=== PATIENT | male | born 1985 | race Caucasian/White ===

== ENCOUNTER 2016-08-15 18:53 | Emergency (ER) | payer MEDICAID ==
[2016-08-15 19:02] VITALS: TEMP 98.1
--- NOTE | 2016-08-15 20:05 | EDPHY ---
H & P Time Seen by Provider: 08/15/16 19:10 HPI/ROS: CHIEF COMPLAINT: Headache HISTORY OF PRESENT ILLNESS: Patient is a 30-year-old male with a history of Crohn's disease who presents to the emergency department with a headache. He states that he is prone to dehydration with his Crohn's disease. On Tuesday he developed a headache. He describes this as "a normal thing." He took Tylenol his symptoms resolved. His headache returns last evening after eating Cheetos. He states this was a "bad decision." He developed nausea and vomiting. He describes a left frontal headache that does not radiate. He has no photophobia. No preceding aura. No neck stiffness or pain. The patient awoke this morning and his headache had improved but was slightly present. He has had no nausea or vomiting throughout the day. He denies abdominal pain. No fevers or chills. No recent travel. No weakness or numbness. REVIEW OF SYSTEMS: My complete review of systems is negative except as mentioned in the HPI. Past Medical/Surgical History: Includes Crohn's disease, depression, anxiety Past surgical history: Kidney stone procedure, tonsillectomy, oral surgery Social history: Patient does not smoke tobacco. He uses marijuana. Smoking Status: Current some day smoker Physical Exam: Vitals noted GENERAL: Well-appearing, in no acute distress, alert. HEENT: Eyes normal to inspection, normal pharynx, no signs of dehydration. NECK: No thyromegaly, no lymphadenopathy, supple. RESPIRATORY: Clear to auscultation bilaterally, no rales, rhonchi or wheezing. CVS: Regular rate and rhythm, no rubs, murmurs, or gallops. ABDOMEN: Soft, nontender, nondistended, no organomegaly. BACK: Normal to inspection, no CVA tenderness. SKIN: Normal color, no rash, warm, dry. No pallor. EXTREMITIES: No pedal edema, no calf tenderness, no Homans sign or cords, no joint swelling. NEURO/PSYCH: Higher functions: Alert and Oriented x3. Normal speech and cognition. Normal mood and affect. Cranial nerves: Normal as tested. Cerebellar: Normal as tested. Good finger to nose, good [id number], normal gait. Peripheral exam: Normal motor exam. Normal sensation. Normal reflexes. Constitutional: Initial Vital Signs Temperature (C) 36.7 C 08/15/16 18:57 Heart Rate 67 08/15/16 18:57 Respiratory Rate 16 08/15/16 18:57 Blood Pressure 129/83 H 08/15/16 18:57 O2 Sat (%) 96 08/15/16 18:57 O2 Delivery Mode Room Air Allergies/Adverse Reactions: No Known Allergies Allergy (Verified 03/22/16 01:57) Home Medications: Medication Instructions Recorded fluvoxaMINE MALEATE [Luvox] 100 mg PO DAILY 03/23/11 Medical Thc 09/02/12 Fesoterodine Fumarate [TOVIAZ] 09/19/15 Humira 12/18/15 oxyCODONE/APAP 5/325 [Percocet 1 - 2 tab PO Q4PRN PRN #11 tab 08/15/16 5/325 (*)] Medical Decision Making ED Course/Re-evaluation: In the emergency department I discussed possible etiologies with the patient. An IV was placed. Patient was given normal saline 1 L IV for hydration. The patient was given Reglan 10 mg IV for his headache. I rechecked the patient on numerous occasions. He was stable throughout his stay. His symptoms had improved. He had no focal neuro are deficits on repeat exam. Head CT: No acute disease noted. Discussed the results with the patient. I answered all his questions. The patient had a nonfocal neuro exam prior to discharge. The patient will follow up with worsening symptoms. He was given warnings prior to leaving. Differential Diagnosis: My differential includes but is not limited to migraine, subarachnoid hemorrhage , subdural hematoma, epidural hematoma, meningitis, encephalitis, dehydration, electrolyte abnormality, sugar abnormality - Data Points Laboratory Results: Laboratory Results 08/15/16 20:15 08/15/16 08/15/16 20:15 20:15 WBC 6.33 10^3/uL 10^3/uL (3.80-9.50) RBC 4.46 10^6/uL 10^6/uL (4.40-6.38) Hgb 13.4 g/dL L g/dL (13.7-17.5) Hct 38.5 % L % (40.0-51.0) MCV 86.3 fL fL (81.5-99.8) MCH 30.0 pg pg (27.9-34.1) MCHC 34.8 g/dL g/dL (32.4-36.7) RDW 16.2 % H % (11.5-15.2) Plt Count 222 10^3/uL 10^3/uL (150-400) MPV 11.5 fL fL (8.7-11.7) Neut % (Auto) 63.9 % % (39.3-74.2) Lymph % (Auto) 24.3 % % (15.0-45.0) [place] % (Auto) 7.4 % % (4.5-13.0) Eos % (Auto) 2.8 % % (0.6-7.6) Baso % (Auto) 1.1 % % (0.3-1.7) Nucleat RBC Rel Count 0.0 % % (0.0-0.2) Absolute Neuts (auto) 4.04 10^3/uL 10^3/uL (1.70-6.50) Absolute Lymphs (auto) 1.54 10^3/uL 10^3/uL (1.00-3.00) Absolute Monos (auto) 0.47 10^3/uL 10^3/uL (0.30-0.80) Absolute Eos (auto) 0.18 10^3/uL 10^3/uL (0.03-0.40) Absolute Basos (auto) 0.07 10^3/uL 10^3/uL (0.02-0.10) Absolute Nucleated RBC 0.00 10^3/uL 10^3/uL (0-0.01) Immature Gran % 0.5 % % (0.0-1.1) Immature Gran # 0.03 10^3/uL 10^3/uL (0.00-0.10) Sodium Pending Potassium Pending Chloride Pending Carbon Dioxide Pending Anion Gap Pending BUN Pending Creatinine Pending Estimated GFR Pending Glucose Pending Calcium Pending Medications Given: Discontinued Medications Metoclopramide HCl (Reglan Injection) 10 mg IVP EDNOW ONE Stop: 08/15/16 20:07 Last Admin: 08/15/16 20:27 Dose: 10 mg Departure - Departure Disposition: Home, Routine, Self-Care Clinical Impression: Dehydration Headache Qualifiers: Headache type: unspecified Headache chronicity pattern: acute headache Intractability: not intractable Qualified Code(s): R51 - Headache Condition: Good Instructions: Acute Headache (ED) Additional Instructions: Make sure to stay well-hydrated. Return with increasing headache, weakness, numbness, neck pain, fever or any other concerns. Referrals: Kathleen Jane [Primary Care Provider] - 2-3 days without fail Prescriptions: oxyCODONE/APAP 5/325 [Percocet 5/325 (*)] 1 - 2 tab PO Q4PRN PRN #11 tab PRN Reason: For Moderate To Severe Pain
[2016-08-15] MEDS ORDERED: NS 1,000 ML IV ONE (20:06)
[2016-08-15] MEDS ORDERED: METOCLOPRAMIDE 10 MG/2 ML VIAL IVP ONE (20:06)
[2016-08-15 20:35] LABS: % IMMATURE GRANULYOCYTES 0.5 % (0.0-1.1); ABSOLUTE IMMATURE GRANULOCYTES 0.03 10^3/uL (0.00-0.10); ADD DIFF? NO; ADD MORPH? NO; ADD SCAN? NO; ATYPICAL LYMPHOCYTE FLAG 30 (0-99); FRAGMENT RBC FLAG 0 (0-99); HEMATOCRIT 38.5 % (40.0-51.0); HEMOGLOBIN 13.4 g/dL (13.7-17.5); LEFT SHIFT FLG 0 (0-99); LIPEMIA HEMOLYSIS FLAG 90 (0-99); MEAN CELL HEMOGLOBIN CONCENTR. 34.8 g/dL (32.4-36.7); MEAN CELL VOLUME 86.3 fL (81.5-99.8); MEAN PLATELET VOLUME 11.5 fL (8.7-11.7); PLATELET CLUMPS FLAG 0 (0-99); PLATELET COUNT 222 10^3/uL (150-400); RED BLOOD CELL COUNT 4.46 10^6/uL (4.40-6.38); RED CELL DISTRIBUTION WIDTH 16.2 % (11.5-15.2)
[2016-08-15 21:19] LABS: ANION GAP 13 mEq/L (8-16); CALCIUM 9.3 mg/dL (8.5-10.4); CARBON DIOXIDE 22 mEq/l (22-31); CHLORIDE 105 mEq/L (97-110); GLOMERULAR FILTRATION RATE > 60; GLUCOSE 102 mg/dL (70-100); POTASSIUM 4.3 mEq/L (3.5-5.2); SODIUM 140 mEq/L (134-144)
[2016-08-15 21:37] VITALS: BP 118/62; PULSE 61; RESP 18; O2SAT 97
== END 2016-08-15 21:37 | disposition home or self-care (01) ==
DX: R51 Headache (principal); E86.0 Dehydration; F17.200 Nicotine dependence, unspecified, uncomplicated
CPT/HCPCS: 96374; J2765

== ENCOUNTER 2016-10-03 14:17 | Emergency (ER) | payer MEDICAID ==
[2016-10-03 14:32] VITALS: TEMP 98.1
--- NOTE | 2016-10-03 15:01 | EDPHY ---
H & P Time Seen by Provider: 10/03/16 14:57 HPI/ROS: Chief complaint. Dehydration HPI. 30-year-old male with history of Crohn's disease tells me he gets easily dehydrated. He feels that his symptoms are worse because of hot weather. He has had similar symptoms previously. When he gets dehydrated gets a headache. He was seen in our emergency department in July for similar symptoms and he said my headache is not nearly as bad as it was then. He has had no fever or head trauma. No chest discomfort or trouble breathing. No abdominal pain including vomiting or diarrhea. No blood in stool. He has had some dietary indiscretion the last 2 weeks after break-up with girlfriend. ROS Constitutional. Dehydrated Eyes. no problems with vision ENT. no sore throat, no nasal drainage Cardiovascular. no chest pain Respiratory. no shortness of breath, no cough Abdominal. no abdominal pain, no nausea/vomiting, no diarrhea . no problems urinating MS. no calf pain/swelling, no neck/back pain, no joint pain Skin. no rash Lymph. no swollen glands Neuro. Headache Past Medical/Surgical History: Crohn's disease, depression, anxiety, kidney stone Social History: Single, daily smoker, no alcohol Smoking Status: Current some day smoker Physical Exam: General Appearance: Alert well-developed male mild distress vital signs are stable Eyes: Pupils equal and round no pallor or injection. ENT, Mouth: Mucous membranes are moist. Respiratory: There are no retractions, lungs are clear to auscultation. Cardiovascular: Regular rate and rhythm. Gastrointestinal: Abdomen is soft and nontender, no masses, bowel sounds normal. Neurological: Awake and alert, sensory and motor exams grossly normal. Skin: Warm and dry, no rashes. Musculoskeletal: Neck is supple nontender. Extremities symmetrical, full range of motion. Psychiatric: Patient is oriented X 3, there is no agitation. Constitutional: Initial Vital Signs Temperature (C) 36.7 C 10/03/16 14:30 Heart Rate 59 L 10/03/16 14:30 Respiratory Rate 18 10/03/16 14:30 Blood Pressure 114/67 10/03/16 14:30 O2 Sat (%) 94 10/03/16 14:30 O2 Delivery Mode Room Air Allergies/Adverse Reactions: No Known Allergies Allergy (Verified 03/22/16 01:57) Home Medications: Medication Instructions Recorded fluvoxaMINE MALEATE [Luvox] 200 mg PO DAILY 03/23/11 Medical Thc 40 mg SC 09/02/12 Fesoterodine Fumarate [TOVIAZ] 09/19/15 Humira 12/18/15 Medical Decision Making Procedures: IV normal saline with target of 2 L ED Course/Re-evaluation: Re-evaluation 4:00 p.m.--patient is stable and improving Re-evaluation 5:25 p.m. patient feels much better. No headache. Neurologically intact. Speaking conversationally. He has no complaints. Differential Diagnosis: Apparent dehydration causing headache. Risk factors would be his Crohn's disease. At this point no evidence of acute abdomen. No electrolyte abnormalities. No evidence for urinary tract infection or kidney stone - Data Points Laboratory Results: Laboratory Results 10/03/16 15:31 10/03/16 15:31 10/03/16 10/03/16 10/03/16 16:44 15:31 15:31 WBC 5.79 10^3/uL 10^3/uL (3.80-9.50) RBC 4.13 10^6/uL L 10^6/uL (4.40-6.38) Hgb 13.1 g/dL L g/dL (13.7-17.5) Hct 38.1 % L % (40.0-51.0) MCV 92.3 fL fL (81.5-99.8) MCH 31.7 pg pg (27.9-34.1) MCHC 34.4 g/dL g/dL (32.4-36.7) RDW 16.0 % H % (11.5-15.2) Plt Count 161 10^3/uL 10^3/uL (150-400) MPV 12.0 fL H fL (8.7-11.7) Neut % (Auto) 76.2 % H % (39.3-74.2) Lymph % (Auto) 17.6 % % (15.0-45.0) [place] % (Auto) 3.6 % L % (4.5-13.0) Eos % (Auto) 1.6 % % (0.6-7.6) Baso % (Auto) 0.7 % % (0.3-1.7) Nucleat RBC Rel Count 0.0 % % (0.0-0.2) Absolute Neuts (auto) 4.41 10^3/uL 10^3/uL (1.70-6.50) Absolute Lymphs (auto) 1.02 10^3/uL 10^3/uL (1.00-3.00) Absolute Monos (auto) 0.21 10^3/uL L 10^3/uL (0.30-0.80) Absolute Eos (auto) 0.09 10^3/uL 10^3/uL (0.03-0.40) Absolute Basos (auto) 0.04 10^3/uL 10^3/uL (0.02-0.10) Absolute Nucleated RBC 0.00 10^3/uL 10^3/uL (0-0.01) Immature Gran % 0.3 % % (0.0-1.1) Immature Gran # 0.02 10^3/uL 10^3/uL (0.00-0.10) Sodium 139 mEq/L mEq/L (134-144) Potassium 4.6 mEq/L mEq/L (3.5-5.2) Chloride 104 mEq/L mEq/L (97-110) Carbon Dioxide 23 mEq/l mEq/l (22-31) Anion Gap 12 mEq/L mEq/L (8-16) BUN 15 mg/dL mg/dL (7-23) Creatinine 1.1 mg/dL mg/dL (0.7-1.3) Estimated GFR > 60 Glucose 79 mg/dL mg/dL (70-100) Calcium 9.4 mg/dL mg/dL (8.5-10.4) Urine Color YELLOW Urine Appearance CLEAR Urine pH 6.0 (5.0-7.5) Ur Specific [place] 1.018 (1.002-1.030) Urine Protein NEGATIVE (NEGATIVE) Urine Ketones 2+ H (NEGATIVE) Urine Blood NEGATIVE (NEGATIVE) Urine Nitrate NEGATIVE (NEGATIVE) Urine Bilirubin NEGATIVE (NEGATIVE) Urine Urobilinogen 2.0 EU H EU (0.2-1.0) Ur Leukocyte Esterase NEGATIVE (NEGATIVE) Urine Glucose NEGATIVE (NEGATIVE) Medications Given: Discontinued Medications Sodium Chloride (Ns) 1,000 mls @ 0 mls/hr IV ONCE ONE PRN Reason: Wide Open Stop: 10/03/16 15:18 Last Admin: 10/03/16 15:35 Dose: 1,000 mls Sodium Chloride (Ns) 1,000 mls @ 0 mls/hr IV ONCE ONE PRN Reason: Wide Open Stop: 10/03/16 15:18 Last Admin: 10/03/16 15:35 Dose: 1,000 mls Departure - Departure Disposition: Home, Routine, Self-Care Clinical Impression: Dehydration Condition: Good Instructions: Dehydration (ED) Additional Instructions: Continue to work on fluid intake. Return for worsening symptoms. Recheck in 2- 3 days if not better Referrals: CM MARISCAL [Other] - 2-3 days, if not improved
[2016-10-03] MEDS ORDERED: NS 1,000 ML IV ONE ×2 (15:17)
[2016-10-03 15:39] LABS: % IMMATURE GRANULYOCYTES 0.3 % (0.0-1.1); ABSOLUTE IMMATURE GRANULOCYTES 0.02 10^3/uL (0.00-0.10); ADD DIFF? NO; ADD MORPH? NO; ADD SCAN? NO; ATYPICAL LYMPHOCYTE FLAG 40 (0-99); FRAGMENT RBC FLAG 0 (0-99); HEMATOCRIT 38.1 % (40.0-51.0); HEMOGLOBIN 13.1 g/dL (13.7-17.5); LEFT SHIFT FLG 0 (0-99); LIPEMIA HEMOLYSIS FLAG 90 (0-99); MEAN CELL HEMOGLOBIN 31.7 pg (27.9-34.1); MEAN CELL HEMOGLOBIN CONCENTR. 34.4 g/dL (32.4-36.7); MEAN CELL VOLUME 92.3 fL (81.5-99.8); PLATELET CLUMPS FLAG 0 (0-99); PLATELET COUNT 161 10^3/uL (150-400); RED BLOOD CELL COUNT 4.13 10^6/uL (4.40-6.38)
[2016-10-03 15:51] LABS: ANION GAP 12 mEq/L (8-16); CALCIUM 9.4 mg/dL (8.5-10.4); CARBON DIOXIDE 23 mEq/l (22-31); CHLORIDE 104 mEq/L (97-110); CREATININE 1.1 mg/dL (0.7-1.3); GLOMERULAR FILTRATION RATE > 60; GLUCOSE 79 mg/dL (70-100); POTASSIUM 4.6 mEq/L (3.5-5.2); SODIUM 139 mEq/L (134-144)
[2016-10-03 16:47] VITALS: RESP 16
[2016-10-03 17:11] LABS: COLOR YELLOW; LEUKOCYTE ESTERASE,URINE NEGATIVE (NEGATIVE); NITRITE,URINE NEGATIVE (NEGATIVE)
[2016-10-03 17:36] VITALS: BP 128/86; PULSE 50; O2SAT 98
== END 2016-10-03 17:36 | disposition home or self-care (01) ==
DX: E86.0 Dehydration (principal); F17.200 Nicotine dependence, unspecified, uncomplicated

== ENCOUNTER 2016-11-27 16:59 | Emergency (ER) | payer MEDICAID ==
[2016-11-27 17:46] LABS: COLOR YELLOW; LEUKOCYTE ESTERASE,URINE NEGATIVE (NEGATIVE); MUCUS TRACE /lpf (NONE-1+); NITRITE,URINE NEGATIVE (NEGATIVE)
[2016-11-27 17:48] LABS: WBC,URINE NONE SEEN /hpf (0-3)
[2016-11-27] MEDS ORDERED: NS 1,000 ML IV ONE ×2 (18:21)
--- NOTE | 2016-11-27 18:51 | EDPHY ---
H & P Stated Complaint: hx crohns/wants iv fluids Time Seen by Provider: 11/27/16 17:23 HPI/ROS: CHIEF COMPLAINT: dehydration HISTORY OF PRESENT ILLNESS: 31-year-old male presents emergency department reporting he feels dehydrated. Patient has a history of Crohn's and takes Humira. He reports every few months he starts to feel dehydrated like he needs IV fluids and that makes him feel better. Patient denies fevers or chills, no abdominal pain, no diarrhea. He reports chronic urinary frequency x3 years. He denies hematuria, dysuria. No penile discharge. Patient sees Dr. Mcclellan every 3 months. He has history of kidney stones, denies any recent flank pain. He denies abdominal pain, no nausea or vomiting. Patient reports the heat is contributing to his dehydration. He is requesting IV fluids and discharge. REVIEW OF SYSTEMS: A comprehensive 10 point review of systems is otherwise negative aside from elements mentioned in the history of present illness. Source: Patient - Personal History Current Tetanus/Diphtheria Vaccine: Unsure Tetanus Vaccine Date: UNKNOWN - Medical/Surgical History Hx Asthma: Yes Hx Chronic Respiratory Disease: No Hx Diabetes: No Hx Cardiac Disease: No Hx Renal Disease: No Hx Cirrhosis: No Hx Alcoholism: No Hx HIV/AIDS: No Hx Splenectomy or Spleen Trauma: No Other PMH: anxiety, crohns, depression, marijuana. kidney stone with procedure , tonsillectomy - Social History Smoking Status: Current some day smoker Alcohol Use: Sober Drug Use: Marijuana - Physical Exam Exam: Physical Exam Gen: Alert and Oriented, NAD HEENT: PERRL, dry lips, moist mucous membranes NECK: no meningismus CV: regular rate and regular rhythm PULM: CTAB, no wheezes ABDOMEN: soft, non tender to palpation, BS present BACK: No CVA tenderness NEURO: Neurologically grossly intact EXTREMITIES: normal appearing SKIN: no rash or break in skin on exposed skin PSYCH: answers questions appropriately. Constitutional: Initial Vital Signs Temperature (C) 36.7 C 11/27/16 17:07 Heart Rate 55 L 11/27/16 17:07 Respiratory Rate 18 11/27/16 17:07 Blood Pressure 121/79 H 11/27/16 17:07 O2 Sat (%) 97 11/27/16 17:07 O2 Delivery Mode Room Air Allergies/Adverse Reactions: No Known Allergies Allergy (Verified 11/27/16 17:06) Home Medications: Medication Instructions Recorded fluvoxaMINE MALEATE [Luvox] 200 mg PO DAILY 03/23/11 Medical Thc 40 mg SC 09/02/12 Fesoterodine Fumarate [TOVIAZ] 09/19/15 Humira 12/18/15 Medical Decision Making ED Course/Re-evaluation: IV established, patient is given 2 L of normal saline, urinalysis is obtained showing 10-15 RBCs, no WBCs. Patient is discharged home, he agrees to follow up with Dr. Mcclellan next week. Patient is given strict return precautions for any dysuria, fevers, abdominal pain, any new symptoms or concerns. - Data Points Laboratory Results: Laboratory Results 11/27/16 18:26 11/27/16 11/27/16 18:26 17:25 Sodium 145 mEq/L H mEq/L (134-144) Potassium 4.7 mEq/L mEq/L (3.5-5.2) Chloride 108 mEq/L mEq/L (97-110) Carbon Dioxide 23 mEq/l mEq/l (22-31) Anion Gap 14 mEq/L mEq/L (8-16) BUN 15 mg/dL mg/dL (7-23) Creatinine 1.1 mg/dL mg/dL (0.7-1.3) Estimated GFR > 60 Glucose 97 mg/dL mg/dL (70-100) Calcium 9.9 mg/dL mg/dL (8.5-10.4) Urine Color YELLOW Urine Appearance CLEAR Urine pH 6.0 (5.0-7.5) Ur Specific [place] 1.026 (1.002-1.030) Urine Protein NEGATIVE (NEGATIVE) Urine Ketones NEGATIVE (NEGATIVE) Urine Blood NEGATIVE (NEGATIVE) Urine Nitrate NEGATIVE (NEGATIVE) Urine Bilirubin NEGATIVE (NEGATIVE) Urine Urobilinogen 2.0 EU H EU (0.2-1.0) Ur Leukocyte Esterase NEGATIVE (NEGATIVE) Urine RBC 10-15 /hpf H /hpf (0-3) Urine WBC NONE SEEN /hpf /hpf (0-3) Ur Epithelial Cells NONE SEEN /lpf /lpf (NONE-1+) Urine Mucus TRACE /lpf /lpf (NONE-1+) Urine Glucose NEGATIVE (NEGATIVE) Medications Given: Discontinued Medications Sodium Chloride (Ns) 1,000 mls @ 0 mls/hr IV ONCE ONE; Wide Open PRN Reason: Protocol Stop: 11/27/16 18:22 Last Admin: 11/27/16 18:51 Dose: 1,000 mls Sodium Chloride (Ns) 1,000 mls @ 0 mls/hr IV ONCE ONE; Wide Open PRN Reason: Protocol Stop: 11/27/16 18:22 Last Admin: 11/27/16 18:51 Dose: 1,000 mls Departure - Departure Disposition: Home, Routine, Self-Care Clinical Impression: Dehydration, mild Condition: Good Instructions: Dehydration (ED) Additional Instructions: Drink plenty of fluids, follow up with Dr. Mcclellan at 1st available appointment. Return to the emergency department for any new symptoms, worsening symptoms or concerns. Referrals: Magdy Mcclellan MD [Medical Doctor] - As per Instructions
[2016-11-27 19:14] LABS: ANION GAP 14 mEq/L (8-16); CALCIUM 9.9 mg/dL (8.5-10.4); CARBON DIOXIDE 23 mEq/l (22-31); CHLORIDE 108 mEq/L (97-110); CREATININE 1.1 mg/dL (0.7-1.3); GLOMERULAR FILTRATION RATE > 60; GLUCOSE 97 mg/dL (70-100); POTASSIUM 4.7 mEq/L (3.5-5.2); SODIUM 145 mEq/L (134-144)
[2016-11-27 20:03] VITALS: BP 130/74; PULSE 80; RESP 14; TEMP 98.4; O2SAT 94
== END 2016-11-27 20:02 | disposition home or self-care (01) ==
DX: E86.0 Dehydration (principal); J45.909 Unspecified asthma, uncomplicated; F17.200 Nicotine dependence, unspecified, uncomplicated

== ENCOUNTER 2017-01-06 03:41 | Emergency (ER) | payer MEDICAID ==
[2017-01-06] MEDS ORDERED: NS 2,000 ML IV ONE (03:55)
[2017-01-06] MEDS ORDERED: ONDANSETRON 4 MG/2 ML VIAL IVP ONE (03:55)
[2017-01-06] MEDS ORDERED: KETOROLAC 30 MG/1 ML SDV IVP ONE (03:56)
[2017-01-06] MEDS ORDERED: DEXAMETHASONE 10 MG/ML VIAL IVP ONE (03:56)
--- NOTE | 2017-01-06 04:01 | EDPHY ---
H & P Stated Complaint: MAURICE, abd discomfort, nausea starting tonight HPI/ROS: HPI CHIEF COMPLAINT: Nausea, vomiting, headache, abdominal bloating HISTORY OF PRESENT ILLNESS: This patient 31-year-old male significant past medical history for anxiety, Crohn's disease, presents emergency room with close to 12 hours of a headache. Patient states that he has been under strict diet recently for his Crohn's disease however today he split urged with fried chicken and Swedish fries and a high salt intake for lunch and dinner. He states that around 7 o'clock this evening he has felt nauseous and having abdominal bloating without any significant abdominal pain. Took a nap for an hour developed a left-sided throbbing headache left frontal region. No neck pain no fever no visual disturbance. No dizziness. States that he tried to go to sleep after taking multiple Tylenol but was unable to do so. He does tell me gets headaches but has not had a headache in a while. This was not thunderclap this was not sudden onset. States he could not get comfortable sleepy last night so decided come to the emergency room. Main complaint is abdominal bloating nausea vomiting and left-sided frontal throbbing headache. Past Medical History: Crohn's disease, anxiety Past Surgical History: No recent surgery Social History: Denies daily use of drugs, tobacco, marijuana or alcohol. Recently unemployed Family History: Noncontributory ROS REVIEW OF SYSTEMS: A comprehensive 10 point review of systems is otherwise negative aside from elements mentioned in the history of present illness. Exam Constitutional appears nontoxic, actively vomiting in room, triage nursing summary reviewed, vital signs reviewed, awake/alert. Eyes normal conjunctivae and sclera, EOMI, PERRLA. HENT normal inspection, atraumatic, moist mucus membranes, no epistaxis, neck supple/ no meningismus, no raccoon eyes. Respiratory clear to auscultation bilaterally, normal breath sounds, no respiratory distress, no wheezing. Cardiovascular rate normal, regular rhythm, no murmur, no edema, distal pulses normal. Gastrointestinal soft, non-tender, no rebound, no guarding, normal bowel sounds, no distension, no pulsatile mass. Genitourinary no CVA tenderness. Musculoskeletal no midline vertebral tenderness, full range of motion, no calf swelling, no tenderness of extremities, no meningismus, good pulses, neurovascularly intact. Skin pink, warm, & dry, no rash, skin atraumatic. Neurologic normal neurological exam, awake, alert and oriented x 3, AAOx3, moves all 4 extremities equally, motor intact, sensory intact, CN II-XII intact , normal cerebellar, normal vision, normal speech. Psychiatric normal mood/affect. Heme/Lymph/Immune no lymphadenopathy. Differential Diagnosis: Includes but is not limited to in a particular order acute nausea vomiting from dietary discretion, gastritis, electrolyte disturbance, dehydration, migraine headache, intracranial bleed Medical Decision Making: Plan for this patient IV establishment, IV fluid bolus , Zofran for nausea migraine cocktail, CT head without contrast and we will re- evaluate. Re-evaluation: CT scan of the head without IV contrast The results of the study are negative for acute intracranial abnormality no bleed.. The study was read by Dr. Vinson I viewed the images myself on the PACS system. [id number]: I did reexamine this patient at this time is resting comfortably feels much better. He is not vomiting. Tells me his headache has resolved. He feels comfortable being discharged. Prescription for Zofran. He understands return emergency room if develops worsening symptoms. Source: Patient - Personal History Current Tetanus/Diphtheria Vaccine: Unsure Tetanus Vaccine Date: UNKNOWN - Medical/Surgical History Hx Asthma: Yes Hx Chronic Respiratory Disease: No Hx Diabetes: No Hx Cardiac Disease: No Hx Renal Disease: No Hx Cirrhosis: No Hx Alcoholism: No Hx HIV/AIDS: No Hx Splenectomy or Spleen Trauma: No Other PMH: anxiety, crohns, depression, marijuana. kidney stone with procedure , tonsillectomy - Social History Smoking Status: Current some day smoker Constitutional: Initial Vital Signs Temperature (C) 36.4 C 01/06/17 03:44 Heart Rate 56 L 01/06/17 03:44 Respiratory Rate 16 01/06/17 03:44 Blood Pressure 131/107 H 01/06/17 03:44 O2 Sat (%) 97 01/06/17 03:44 O2 Delivery Mode Room Air Allergies/Adverse Reactions: No Known Allergies Allergy (Verified 01/06/17 03:46) Home Medications: Medication Instructions Recorded fluvoxaMINE MALEATE [Luvox] 200 mg PO DAILY 03/23/11 Medical Thc 40 mg SC 09/02/12 Humira 12/18/15 Ondansetron HCl [Zofran] 4 mg PO Q4-6PRN PRN #10 tablet 01/06/17 Medical Decision Making - Data Points Laboratory Results: Laboratory Results 01/06/17 04:00 01/06/17 04:00 01/06/17 01/06/17 01/06/17 04:00 04:00 04:00 WBC 8.59 10^3/uL 10^3/uL (3.80-9.50) RBC 4.54 10^6/uL 10^6/uL (4.40-6.38) Hgb 14.9 g/dL g/dL (13.7-17.5) Hct 43.1 % % (40.0-51.0) MCV 94.9 fL fL (81.5-99.8) MCH 32.8 pg pg (27.9-34.1) MCHC 34.6 g/dL g/dL (32.4-36.7) RDW 15.2 % % (11.5-15.2) Plt Count 181 10^3/uL 10^3/uL (150-400) MPV 11.9 fL H fL (8.7-11.7) Neut % (Auto) 72.1 % % (39.3-74.2) Lymph % (Auto) 19.3 % % (15.0-45.0) [place] % (Auto) 6.5 % % (4.5-13.0) Eos % (Auto) 1.2 % % (0.6-7.6) Baso % (Auto) 0.6 % % (0.3-1.7) Nucleat RBC Rel Count 0.0 % % (0.0-0.2) Absolute Neuts (auto) 6.19 10^3/uL 10^3/uL (1.70-6.50) Absolute Lymphs (auto) 1.66 10^3/uL 10^3/uL (1.00-3.00) Absolute Monos (auto) 0.56 10^3/uL 10^3/uL (0.30-0.80) Absolute Eos (auto) 0.10 10^3/uL 10^3/uL (0.03-0.40) Absolute Basos (auto) 0.05 10^3/uL 10^3/uL (0.02-0.10) Absolute Nucleated RBC 0.00 10^3/uL 10^3/uL (0-0.01) Immature Gran % 0.3 % % (0.0-1.1) Immature Gran # 0.03 10^3/uL 10^3/uL (0.00-0.10) PT 13.2 SEC SEC (12.0-15.0) INR 1.01 (0.83-1.16) APTT 27.6 SEC SEC (23.0-38.0) Sodium 144 mEq/L mEq/L (134-144) Potassium 4.6 mEq/L mEq/L (3.5-5.2) Chloride 105 mEq/L mEq/L (97-110) Carbon Dioxide 22 mEq/l mEq/l (22-31) Anion Gap 17 mEq/L H mEq/L (8-16) BUN 26 mg/dL H mg/dL (7-23) Creatinine 1.3 mg/dL mg/dL (0.7-1.3) Estimated GFR > 60 Glucose 121 mg/dL H mg/dL (70-100) Calcium 9.9 mg/dL mg/dL (8.5-10.4) Total Bilirubin 1.4 mg/dL mg/dL (0.1-1.4) Conjugated Bilirubin 0.3 mg/dL mg/dL (0.0-0.5) Unconjugated Bilirubin 1.1 mg/dL mg/dL (0.0-1.1) AST 64 IU/L H IU/L (17-59) ALT 38 IU/L IU/L (21-72) Alkaline Phosphatase 63 IU/L IU/L (38-126) Total Protein 8.0 g/dL g/dL (6.3-8.2) Albumin 5.0 g/dL g/dL (3.5-5.0) Lipase 250.0 IU/L IU/L (23-300) Medications Given: Discontinued Medications Dexamethasone (Decadron Injection) 10 mg IVP EDNOW ONE Stop: 01/06/17 03:57 Last Admin: 01/06/17 04:11 Dose: 10 mg Diphenhydramine HCl (Benadryl Injection) 25 mg IVP EDNOW ONE Stop: 01/06/17 03:57 Last Admin: 01/06/17 04:11 Dose: 25 mg Sodium Chloride (Ns) 2,000 mls @ 0 mls/hr IV EDNOW ONE; Wide Open PRN Reason: Protocol Stop: 01/06/17 03:56 Last Admin: 01/06/17 04:12 Dose: 2,000 mls Ketorolac Tromethamine (Toradol) 30 mg IVP EDNOW ONE Stop: 01/06/17 03:57 Last Admin: 01/06/17 04:11 Dose: 30 mg Ondansetron HCl (Zofran) 4 mg IVP EDNOW ONE Stop: 01/06/17 03:56 Last Admin: 01/06/17 04:11 Dose: 4 mg Departure - Departure Disposition: Home, Routine, Self-Care Clinical Impression: Nausea and vomiting Qualifiers: Vomiting type: unspecified Vomiting Intractability: non-intractable Qualified Code(s): R11.2 - Nausea with vomiting, unspecified Headache Qualifiers: Headache type: unspecified Headache chronicity pattern: acute headache Intractability: not intractable Qualified Code(s): R51 - Headache Condition: Good Instructions: Acute Headache (ED), Acute Nausea and Vomiting (ED) Additional Instructions: 1. Return emergency room if you have any worsening symptoms includes severe headache, vomiting questions or concerns. Referrals: Kathleen Willson PA [Primary Care Provider] - As per Instructions Prescriptions: Ondansetron HCl [Zofran] 4 mg PO Q4-6PRN PRN #10 tablet PRN Reason: Nausea/Vomiting, Use 1st
[2017-01-06 04:20] LABS: % IMMATURE GRANULYOCYTES 0.3 % (0.0-1.1); ABSOLUTE IMMATURE GRANULOCYTES 0.03 10^3/uL (0.00-0.10); ADD DIFF? NO; ADD MORPH? NO; ADD SCAN? NO; ATYPICAL LYMPHOCYTE FLAG 10 (0-99); FRAGMENT RBC FLAG 0 (0-99); HEMATOCRIT 43.1 % (40.0-51.0); HEMOGLOBIN 14.9 g/dL (13.7-17.5); LEFT SHIFT FLG 0 (0-99); LIPEMIA HEMOLYSIS FLAG 90 (0-99); MEAN CELL HEMOGLOBIN 32.8 pg (27.9-34.1); MEAN CELL HEMOGLOBIN CONCENTR. 34.6 g/dL (32.4-36.7); MEAN CELL VOLUME 94.9 fL (81.5-99.8); MEAN PLATELET VOLUME 11.9 fL (8.7-11.7); PLATELET CLUMPS FLAG 10 (0-99); PLATELET COUNT 181 10^3/uL (150-400); RED BLOOD CELL COUNT 4.54 10^6/uL (4.40-6.38); RED CELL DISTRIBUTION WIDTH 15.2 % (11.5-15.2)
[2017-01-06 04:27] LABS: ALANINE AMINOTRANSFERASE 38 IU/L (21-72); ALKALINE PHOSPHATASE 63 IU/L (38-126); ANION GAP 17 mEq/L (8-16); ASPARTATE AMINOTRANSFERASE 64 IU/L (17-59); BILIRUBIN,TOTAL 1.4 mg/dL (0.1-1.4); BILIRUBIN-CONJUGATED 0.3 mg/dL (0.0-0.5); BILIRUBIN-UNCONJUGATED 1.1 mg/dL (0.0-1.1); CALCIUM 9.9 mg/dL (8.5-10.4); CARBON DIOXIDE 22 mEq/l (22-31); CHLORIDE 105 mEq/L (97-110); CREATININE 1.3 mg/dL (0.7-1.3); GLOMERULAR FILTRATION RATE > 60; GLUCOSE 121 mg/dL (70-100); POTASSIUM 4.6 mEq/L (3.5-5.2); SODIUM 144 mEq/L (134-144)
[2017-01-06 04:29] LABS: INR 1.01 (0.83-1.16); PROTIME(PATIENT) 13.2 SEC (12.0-15.0)
[2017-01-06 04:30] LABS: APTT 27.6 SEC (23.0-38.0)
[2017-01-06 05:31] VITALS: BP 131/85; PULSE 59; RESP 18; TEMP 98.4; O2SAT 96
== END 2017-01-06 05:31 | disposition home or self-care (01) ==
DX: R11.2 Nausea with vomiting, unspecified (principal); R51 Headache; E86.9 Volume depletion, unspecified; J45.909 Unspecified asthma, uncomplicated; F17.200 Nicotine dependence, unspecified, uncomplicated
CPT/HCPCS: 96374; J1100; J1200; J1885; J2405

== ENCOUNTER 2017-01-20 11:57 | Emergency (ER) | payer MEDICAID ==
[2017-01-20 12:08] VITALS: BP 130/87; PULSE 58; RESP 18; TEMP 99; O2SAT 97
== END 2017-01-20 13:00 | disposition left against medical advice (07) ==
DX: Z53.21 Procedure and treatment not carried out due to patient leaving prior to being seen by health care provider (principal)

== ENCOUNTER 2017-01-20 13:16 | Emergency (ER) | payer MEDICAID ==
[2017-01-20 13:27] VITALS: TEMP 97.9; O2SAT 95
--- NOTE | 2017-01-20 13:47 | EDPHY ---
H & P Time Seen by Provider: 01/20/17 13:34 HPI/ROS: CHIEF COMPLAINT: Difficulty with urination HISTORY OF PRESENT ILLNESS: Patient is a 31-year-old male with a history of Crohn's disease and recent bladder expansion procedure the presents emergency department urinating difficulty. Patient states that 1 week ago he underwent bladder expansion by Dr. Mcclellan. For the first couple days he had some blood clots in his urine. That has subsequently resolved. He has urinary frequency. He states he is able to urinate but has decreased flow. No dysuria. No flank pain. No fevers or chills. No abdominal pain. No nausea or vomiting. The patient has an appointment with Dr. Mcclellan REVIEW OF SYSTEMS: My complete review of systems is negative except as mentioned in the HPI. Past Medical/Surgical History: Includes Crohn's disease, anxiety, depression, kidney stone Past surgical history: Tonsillectomy, bladder suspension surgery Social history: The patient does not smoke. Smoking Status: Current some day smoker Physical Exam: Vitals noted. Afebrile. GENERAL: Well-appearing, in no acute distress, alert. HEENT: Eyes normal to inspection, normal pharynx, no signs of dehydration. NECK: No thyromegaly, no lymphadenopathy, supple. RESPIRATORY: Clear to auscultation bilaterally, no rales, rhonchi or wheezing. CVS: Regular rate and rhythm, no rubs, murmurs, or gallops. ABDOMEN: Soft, nontender, nondistended, no organomegaly. Normal exam BACK: Normal to inspection, no CVA tenderness. SKIN: Normal color, no rash, warm, dry. No pallor. EXTREMITIES: No pedal edema, no joint swelling. NEURO/PSYCH: Alert and oriented, normal mood and affect Constitutional: Initial Vital Signs Temperature (C) 36.6 C 01/20/17 13:25 Heart Rate 66 01/20/17 13:25 Respiratory Rate 18 01/20/17 13:25 Blood Pressure 150/92 H 01/20/17 13:25 O2 Sat (%) 95 01/20/17 13:25 O2 Delivery Mode Room Air Allergies/Adverse Reactions: No Known Allergies Allergy (Verified 01/20/17 13:18) Home Medications: Medication Instructions Recorded fluvoxaMINE MALEATE [Luvox] 200 mg PO DAILY 03/23/11 Humira 12/18/15 Cephalexin [Keflex (*)] 500 mg PO QID #12 cap 01/20/17 Hydrocodone/APAP 5/325 [[place] 1 - 2 tab PO Q4 #13 tab 01/20/17 5/325 (RX)] Medical Decision Making ED Course/Re-evaluation: In the emergency department I discussed possible etiologies with the patient. Urine sample was obtained. The patient was able to urinate for the sample on demand. Procedure: Bladder ultrasound Indication: Change in urinary frequency There is no visible foreign body. Patient has a full bladder. I discussed the results with the patient. The patient consented to catheterization. I discussed the case with Dr. Mcclellan. He agreed with the catheterization. Pt was concerned about the painful procedure. An IV was placed. Patient was given fentanyl 100 mcg IV and Zofran 4 mg IV prior to catheter placement. On initial attempt the patient states he was too anxious. He is given Versed 1 mg IV. Patient tolerated the procedure well. Urine was obtained. He was given a leg bag catheter. Patient was found to have white cells and red cells in his urine. He is given a prescription of Keflex prior to leaving. I gave the patient warnings prior to leaving. He will follow up with the urologist tomorrow. Differential Diagnosis: My differential includes but is not limited to urinary tract infection, pyelonephritis, urinary retention, bacteremia, sepsis, bladder perforation - Data Points Laboratory Results: 01/20/17 13:50 Urine Color YELLOW Urine Appearance CLEAR Urine pH 6.0 (5.0-7.5) Ur Specific [place] 1.025 (1.002-1.030) Urine Protein NEGATIVE (NEGATIVE) Urine Ketones NEGATIVE (NEGATIVE) Urine Blood 2+ H (NEGATIVE) Urine Nitrate NEGATIVE (NEGATIVE) Urine Bilirubin NEGATIVE (NEGATIVE) Urine Urobilinogen 0.2 EU EU (0.2-1.0) Ur Leukocyte Esterase NEGATIVE (NEGATIVE) Urine RBC 15-25 /hpf H /hpf (0-3) Urine WBC 5-10 /hpf H /hpf (0-3) Ur Epithelial Cells TRACE /lpf /lpf (NONE-1+) Urine Bacteria TRACE /hpf H /hpf (NONE SEEN) Urine Mucus 2+ /lpf H /lpf (NONE-1+) Urine Glucose NEGATIVE (NEGATIVE) Medications Given: Discontinued Medications Fentanyl (Sublimaze) 100 mcg IVP EDNOW ONE Stop: 01/20/17 14:21 Last Admin: 01/20/17 14:28 Dose: 100 mcg Midazolam HCl (Versed) 1 mg IVP EDNOW ONE Stop: 01/20/17 14:39 Last Admin: 01/20/17 14:39 Dose: 1 mg Ondansetron HCl (Zofran) 4 mg IVP EDNOW ONE Stop: 01/20/17 14:21 Last Admin: 01/20/17 14:28 Dose: 4 mg Departure - Departure Disposition: Home, Routine, Self-Care Clinical Impression: Urinary frequency, Urinary retention Condition: Good Instructions: Urinary Retention in Men (ED), Argueta Catheter Placement and Care (ED), Dysuria (ED) Additional Instructions: Return with increasing pain, fever, flank pain, inability urinate or any other concerns. Referrals: Magdy Mcclellan MD [Medical Doctor] - 01/21/17 Prescriptions: Cephalexin [Keflex (*)] 500 mg PO QID #12 cap Hydrocodone/APAP 5/325 [[place] 5/325 (RX)] 1 - 2 tab PO Q4 #13 tab
[2017-01-20 13:56] LABS: COLOR YELLOW; LEUKOCYTE ESTERASE,URINE NEGATIVE (NEGATIVE); NITRITE,URINE NEGATIVE (NEGATIVE)
[2017-01-20 14:10] LABS: BACTERIA TRACE /hpf (NONE SEEN); MUCUS 2+ /lpf (NONE-1+); RBC,URINE 15-25 /hpf (0-3)
[2017-01-20] MEDS ORDERED: fentaNYL 100 MCG/2 ML INJ IVP ONE (14:20)
[2017-01-20] MEDS ORDERED: ONDANSETRON 4 MG/2 ML VIAL IVP ONE (14:20)
[2017-01-20] MEDS ORDERED: CEPHALEXIN 500 MG CAP PO ONE (14:21)
[2017-01-20] MEDS ORDERED: MIDAZOLAM 2 MG/2 ML VIAL ONE (14:35)
[2017-01-20] MEDS ORDERED: MIDAZOLAM 2 MG/2 ML VIAL IVP ONE (14:38)
[2017-01-20] MEDS ORDERED: HYDROCODONE/APAP 5/325 TAB PO ONE (14:57)
[2017-01-20 15:17] VITALS: BP 137/78; PULSE 59; RESP 16
== END 2017-01-20 15:16 | disposition home or self-care (01) ==
LOC: CED 13:16
DX: R33.9 Retention of urine, unspecified (principal); R35.0 Frequency of micturition; F17.200 Nicotine dependence, unspecified, uncomplicated
CPT/HCPCS: 81003-PO; 81015-PO; 96374; J2250; J2405; J3010

== ENCOUNTER 2017-01-26 19:24 | Emergency (ER) | payer MEDICAID ==
--- NOTE | 2017-01-26 19:39 | EDPHY ---
H & P Time Seen by Provider: 01/26/17 19:28 HPI/ROS: CHIEF COMPLAINT: Urinary urgency HISTORY OF PRESENT ILLNESS: The patient is a 31-year-old male with history of Crohn's disease and recent bladder expansion procedure, who presents with bloating and urinary urgency. After the bladder expansion, the patient has not been able to urinate normally. He is only able to urinate a small amount, but continues to feel the urgency. He had a catheter placed last week and Dr. Mcclellan removed it the following day. He has been performing self catheterization at home. Each time he is only able to drain a small amount. Today the patient felt urinary urgency all day. He ran out of catheters, but is unable to fully urinate. He has suprapubic fullness and some bladder discomfort. He denies hematuria or dysuria. REVIEW OF SYSTEMS: A comprehensive 10 point review of systems is otherwise negative aside from elements mentioned in the history of present illness. Past Medical/Surgical History: Crohn's disease, Anxiety, Depression, Kidney stones PSH: Bladder expansion, Tonsillectomy Social History: Single. Lives in [place]. Smoking Status: Current some day smoker Physical Exam: General Appearance: Alert, pleasant Eyes: Pupils equal and round, no conjunctival pallor ENT, Mouth: Mucous membranes moist Neck: Normal inspection Respiratory: Lungs are clear to auscultation Cardiovascular: Regular rate and rhythm Gastrointestinal: Abdomen is soft, mild suprapubic tenderness Neurological: A&O, nonfocal exam Skin: Warm and dry Extremities: normal inspection Psychiatric: Mood and affect normal Constitutional: Initial Vital Signs Temperature (C) 36.6 C 01/26/17 19:36 Heart Rate 71 01/26/17 19:36 Respiratory Rate 18 01/26/17 19:36 Blood Pressure 149/96 H 01/26/17 19:36 O2 Sat (%) 95 01/26/17 19:36 O2 Delivery Mode Room Air Allergies/Adverse Reactions: No Known Allergies Allergy (Verified 01/26/17 19:36) Home Medications: Medication Instructions Recorded fluvoxaMINE MALEATE [Luvox] 200 mg PO DAILY 03/23/11 Humira 12/18/15 Cephalexin [Keflex (*)] 500 mg PO QID #12 cap 01/20/17 Hydrocodone/APAP 5/325 [[place] 1 - 2 tab PO Q4 #13 tab 01/20/17 5/325 (RX)] Medical Decision Making ED Course/Re-evaluation: Patient with history of Crohn's disease and recent bladder expansion surgery presents with ongoing urinary urgency. Bladder scan shows 87mL. UA is negative for infection. No evidence of urinary retention or UTI. Unclear etiology of sx. 8:25 p.m.: I consulted Dr. Mcclellan, Urology, at the request of the patient. Dr. Mcclellan will followup with the patient in his office. I will send the patient home with urinary catheters. Differential Diagnosis: includes though not limited to urinary retention, UTI, post-op inflammation Departure - Departure Disposition: Home, Routine, Self-Care Clinical Impression: Urinary urgency Condition: Good Instructions: Argueta Catheter Placement and Care (ED) Additional Instructions: Please call Dr. Mcclellan's office tomorrow to arrange a followup appointment. Referrals: Kathleen Willson PA [Primary Care Provider] - As per Instructions Magdy Mcclellan MD [Medical Doctor] - As per Instructions Report Scribed for: Misa Oliver Report Scribed by: Sarina Figueroa Date of Report: 01/26/17 Time of Report: 19:38 Physician Review and Approval Statement: 01/26/17 19:38 Portions of this note were transcribed by a medical records technician. I personally performed the history, physical exam, and medical decision-making; and confirmed the accuracy of the information in the transcribed note.
[2017-01-26 20:06] LABS: COLOR YELLOW; LEUKOCYTE ESTERASE,URINE NEGATIVE (NEGATIVE); NITRITE,URINE NEGATIVE (NEGATIVE)
[2017-01-26 20:53] VITALS: BP 130/75; PULSE 61; RESP 16; TEMP 98.1; O2SAT 93
== END 2017-01-26 20:52 | disposition home or self-care (01) ==
DX: N39.41 Urge incontinence (principal); F17.200 Nicotine dependence, unspecified, uncomplicated

== ENCOUNTER 2017-04-18 19:20 | Emergency (ER) | payer MEDICAID | END 2017-04-18 19:36 | disposition left against medical advice (07) | DX: Z53.21 Procedure and treatment not carried out due to patient leaving prior to being seen by health care provider (principal) ==

== ENCOUNTER 2017-04-18 19:48 | Emergency (ER) | payer MEDICAID ==
[2017-04-18 20:10] VITALS: RESP 20
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
[2017-04-18 20:55] VITALS: BP 133/88; PULSE 65; TEMP 97.7; O2SAT 94
== END 2017-04-18 20:55 | disposition home or self-care (01) ==
LOC: CED 19:48
DX: F41.9 Anxiety disorder, unspecified (principal); F17.200 Nicotine dependence, unspecified, uncomplicated

== ENCOUNTER 2017-05-05 12:46 | Emergency (ER) | payer MEDICAID ==
[2017-05-05 13:15] LABS: COLOR YELLOW; LEUKOCYTE ESTERASE,URINE NEGATIVE (NEGATIVE); NITRITE,URINE NEGATIVE (NEGATIVE)
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
[2017-05-05 13:24] VITALS: BP 134/74; PULSE 63; RESP 16; TEMP 98.4; O2SAT 95
== END 2017-05-05 13:27 | disposition home or self-care (01) ==
LOC: CED 12:46
DX: E86.0 Dehydration (principal); J45.909 Unspecified asthma, uncomplicated; F17.200 Nicotine dependence, unspecified, uncomplicated
CPT/HCPCS: 81003-PO

== ENCOUNTER 2017-05-13 00:04 | Emergency (ER) | payer MEDICAID ==
[2017-05-13] MEDS ORDERED: ONDANSETRON 4 MG/2 ML VIAL IVP ONE (00:14)
[2017-05-13] MEDS ORDERED: NS 1,000 ML IV ONE ×2 (00:14)
--- NOTE | 2017-05-13 00:22 | EDPHY ---
H & P Stated Complaint: N/V, MAURICE Source: Patient Exam Limitations: No limitations - Personal History Current Tetanus/Diphtheria Vaccine: Yes Tetanus Vaccine Date: <10 years - Medical/Surgical History Hx Asthma: Yes Hx Chronic Respiratory Disease: No Hx Diabetes: No Hx Cardiac Disease: No Hx Renal Disease: No Hx Cirrhosis: No Hx Alcoholism: No Hx HIV/AIDS: No Hx Splenectomy or Spleen Trauma: No Other PMH: anxiety, crohns, depression, athma. kidney stone with procedure, tonsillectomy, bladder expanding surgery 12/2016 - Social History Smoking Status: Former smoker Time Seen by Provider: 05/13/17 00:19 HPI/ROS: HPI: This is a 31-year-old male presents with Chief Complaint: Nausea vomiting Location: GI Quality: Nausea vomiting Duration: 3-4 hours prior to arrival Signs and Symptoms: no fever, + nausea, + vomiting x1, no hematemesis, no blood in stool, no abdominal bloating, + diarrhea x1, no back pain, no urinary symptoms, no testicular/groin pain, no indigestion, no chest pain, no shortness of breath Timing: Sudden Severity: Moderate Context: Patient has a history of Crohn's disease takes Humira and Imuran presents with sudden onset of fatigue, nausea, 1 episode of vomiting of stomach contents and 1 episode of diarrhea around 8:00 p.m. this evening. Patient reports that he has been really stressed out lately, only drank a Red Bull, feels like he is dehydrated and is requesting labs and IV fluids. He reports that he is not having a Crohn's exacerbation does not have any abdominal pain. He does have a dull aching headache that he believes is related to the dehydration. Patient came home this evening and took a nap from 5-8 pm. Modifying Factors: None Comment: ROS: see HPI Constitutional: No fever, no chills, no weight loss Eyes: No blurred vision Respiratory: No shortness of breath, no cough Cardiovascular: No chest pain, no palpitations Gastrointestinal: + nausea, + vomiting, + diarrhea, no hematemesis, no blood in stool Genitourinary: No dysuria, no blood in urine Extremities: No myalgias, no edema Neurologic: No weakness, no numbness Skin: No rashes, no petechiae Hematologic: No bruising, no bleeding MEDICAL/SURGICAL/SOCIAL HISTORY: Medical history: anxiety, crohns, depression, asthma Surgical history: kidney stone with procedure, tonsillectomy, bladder expanding surgery 12/2016. Social history: Employed. CONSTITUTIONAL: Polite and cooperative adult white male, awake and alert, no obvious distress HEENT: Atraumatic and normocephalic, PERRL, EOMI. Tympanic membranes clear. Oropharynx clear, no exudate and moist pink mucosa. Airway patent. No lymphadenopathy. No meningismus. Cardiovascular: Normal S1/S2, regular rate, regular rhythm, without murmur rub or gallop. PULMONARY/CHEST: Symmetrical and nontender. Clear to auscultation bilaterally. Good air movement. No accessory muscle usage. ABDOMEN: Soft, nondistended, nontender, no rebound, no guarding, no peritoneal signs, no masses or organomegaly. No CVAT. EXTREMITIES: 2/2 pulses, strength 5/5, no deformities, no clubbing, no cyanosis or edema. NEUROLOGICAL: no focal neuro deficits. GCS 15. SKIN: Warm and dry, no erythema. no rash. Good capillary refill. (Meeta Gaspar) Constitutional: Initial Vital Signs Temperature (C) 36.4 C 05/13/17 00:05 Heart Rate 61 05/13/17 00:05 Respiratory Rate 18 05/13/17 00:05 Blood Pressure 143/92 H 05/13/17 00:05 O2 Sat (%) 97 05/13/17 00:05 O2 Delivery Mode Room Air Allergies/Adverse Reactions: No Known Allergies Allergy (Verified 05/13/17 00:09) Home Medications: Medication Instructions Recorded fluvoxaMINE MALEATE [Luvox] 200 mg PO DAILY 03/23/11 Humira 12/18/15 azaTHIOprine 04/18/17 Ondansetron Odt [Zofran Odt 4 mg 4 mg PO Q4 PRN #10 tab 05/13/17 (*)] Medical Decision Making ED Course/Re-evaluation: Labs, IV fluids, IV medications ordered Given 2 L normal saline and IV Zofran with adequate relief Patient is afebrile with no systemic signs. Abdominal exam is benign. No indication for abdominal imaging. Patient politely declines imaging as well. Labs reviewed and grossly unremarkable; no signs of acute kidney injury/ leukocytosis/anemia/electrolyte imbalance/elevated LFTs. Passed p.o. trial prior to discharge. This patient was seen under the supervision of my secondary supervising physician. I evaluated care for this patient independently. Discussed this patient with Dr. Momin who did not see the patient. (Meeta Gaspar) PHYSICIAN DOCUMENTATION: The patient was evaluated and managed by the Physician Oxygen System Tester. My co- signature indicates that I have reviewed this chart and I agree with the findings and plan of care as documented. I am the secondary supervising physician. (Dulce Corley) Differential Diagnosis: Differential diagnosis includes but is not limited to anxiety disorder, viral syndrome, enteritis, gastritis, Crohn's. (Meeta Gaspar) - Data Points Laboratory Results: Laboratory Results 05/13/17 00:30 05/13/17 00:30 05/13/17 05/13/17 00:30 00:30 WBC 8.57 10^3/uL 10^3/uL (3.80-9.50) RBC 4.65 10^6/uL 10^6/uL (4.40-6.38) Hgb 14.8 g/dL g/dL (13.7-17.5) Hct 42.1 % % (40.0-51.0) MCV 90.5 fL fL (81.5-99.8) MCH 31.8 pg pg (27.9-34.1) MCHC 35.2 g/dL g/dL (32.4-36.7) RDW 15.2 % % (11.5-15.2) Plt Count 213 10^3/uL 10^3/uL (150-400) MPV 11.7 fL fL (8.7-11.7) Neut % (Auto) 75.4 % H % (39.3-74.2) Lymph % (Auto) 17.2 % % (15.0-45.0) [place] % (Auto) 3.9 % L % (4.5-13.0) Eos % (Auto) 1.4 % % (0.6-7.6) Baso % (Auto) 0.8 % % (0.3-1.7) Nucleat RBC Rel Count 0.0 % % (0.0-0.2) Absolute Neuts (auto) 6.47 10^3/uL 10^3/uL (1.70-6.50) Absolute Lymphs (auto) 1.47 10^3/uL 10^3/uL (1.00-3.00) Absolute Monos (auto) 0.33 10^3/uL 10^3/uL (0.30-0.80) Absolute Eos (auto) 0.12 10^3/uL 10^3/uL (0.03-0.40) Absolute Basos (auto) 0.07 10^3/uL 10^3/uL (0.02-0.10) Absolute Nucleated RBC 0.00 10^3/uL 10^3/uL (0-0.01) Immature Gran % 1.3 % H % (0.0-1.1) Immature Gran # 0.11 10^3/uL H 10^3/uL (0.00-0.10) Sodium 145 mEq/L H mEq/L (134-144) Potassium 4.0 mEq/L mEq/L (3.5-5.2) Chloride 103 mEq/L mEq/L (97-110) Carbon Dioxide 28 mEq/l mEq/l (22-31) Anion Gap 14 mEq/L mEq/L (8-16) BUN 11 mg/dL mg/dL (7-23) Creatinine 1.2 mg/dL mg/dL (0.7-1.3) Estimated GFR > 60 Glucose 116 mg/dL H mg/dL (70-100) Calcium 9.7 mg/dL mg/dL (8.5-10.4) Total Bilirubin 1.1 mg/dL mg/dL (0.1-1.4) Conjugated Bilirubin 0.2 mg/dL mg/dL (0.0-0.5) Unconjugated Bilirubin 0.9 mg/dL mg/dL (0.0-1.1) AST 25 IU/L IU/L (17-59) ALT 27 IU/L IU/L (21-72) Alkaline Phosphatase 58 IU/L IU/L (38-126) Total Protein 7.8 g/dL g/dL (6.3-8.2) Albumin 4.6 g/dL g/dL (3.5-5.0) Lipase 220 IU/L IU/L (23-300) Medications Given: Discontinued Medications Sodium Chloride (Ns) 1,000 mls @ 0 mls/hr IV EDNOW ONE; Wide Open PRN Reason: Protocol Stop: 05/13/17 00:15 Last Admin: 05/13/17 00:26 Dose: 1,000 mls Sodium Chloride (Ns) 1,000 mls @ 0 mls/hr IV EDNOW ONE; Wide Open PRN Reason: Protocol Stop: 05/13/17 00:15 Last Admin: 05/13/17 00:26 Dose: 1,000 mls Ondansetron HCl (Zofran) 4 mg IVP EDNOW ONE Stop: 05/13/17 00:15 Last Admin: 05/13/17 00:26 Dose: 4 mg Ondansetron HCl (Zofran Odt 4 Mg Prepack#2) 1 btl TAKEHOME EDNOW ONE Stop: 05/13/17 01:17 Last Admin: 05/13/17 01:30 Dose: 1 btl Departure - Departure Disposition: Home, Routine, Self-Care Clinical Impression: Inadequate oral intake Condition: Good Instructions: Ondansetron (By mouth), Dehydration (ED) Additional Instructions: Eat a bland diet for the next 24 hr and then slowly advance as tolerated. Use Zofran every 4-6 hours as needed for nausea, vomiting. Drink 8-10 glasses of fluids per day including water and electrolyte replacement drinks like Gatorade and Powerade. If symptoms do not improve in the next 2-3 days; please follow-up with your primary care provider. Referrals: CM ZAVALA [Other] - As per Instructions Prescriptions: Ondansetron Odt [Zofran Odt 4 mg (*)] 4 mg PO Q4 PRN #10 tab PRN Reason: Nausea/Vomiting, Use 1st
[2017-05-13 00:53] LABS: % IMMATURE GRANULYOCYTES 1.3 % (0.0-1.1); ABSOLUTE IMMATURE GRANULOCYTES 0.11 10^3/uL (0.00-0.10); ADD DIFF? NO; ADD MORPH? NO; ADD SCAN? NO; ATYPICAL LYMPHOCYTE FLAG 20 (0-99); FRAGMENT RBC FLAG 0 (0-99); HEMATOCRIT 42.1 % (40.0-51.0); HEMOGLOBIN 14.8 g/dL (13.7-17.5); LEFT SHIFT FLG 10 (0-99); LIPEMIA HEMOLYSIS FLAG 90 (0-99); MEAN CELL HEMOGLOBIN 31.8 pg (27.9-34.1); MEAN CELL HEMOGLOBIN CONCENTR. 35.2 g/dL (32.4-36.7); MEAN CELL VOLUME 90.5 fL (81.5-99.8); MEAN PLATELET VOLUME 11.7 fL (8.7-11.7); PLATELET CLUMPS FLAG 10 (0-99); PLATELET COUNT 213 10^3/uL (150-400); RED BLOOD CELL COUNT 4.65 10^6/uL (4.40-6.38); RED CELL DISTRIBUTION WIDTH 15.2 % (11.5-15.2)
[2017-05-13] MEDS ORDERED: ONDANSETRON 4MG PREPACK#2 BTL TAKEHOME ONE (01:16)
[2017-05-13 01:19] LABS: ALANINE AMINOTRANSFERASE 27 IU/L (21-72); ALBUMIN 4.6 g/dL (3.5-5.0); ALKALINE PHOSPHATASE 58 IU/L (38-126); ANION GAP 14 mEq/L (8-16); ASPARTATE AMINOTRANSFERASE 25 IU/L (17-59); BILIRUBIN,TOTAL 1.1 mg/dL (0.1-1.4); BILIRUBIN-CONJUGATED 0.2 mg/dL (0.0-0.5); BILIRUBIN-UNCONJUGATED 0.9 mg/dL (0.0-1.1); CALCIUM 9.7 mg/dL (8.5-10.4); CARBON DIOXIDE 28 mEq/l (22-31); CHLORIDE 103 mEq/L (97-110); CREATININE 1.2 mg/dL (0.7-1.3); GLOMERULAR FILTRATION RATE > 60; GLUCOSE 116 mg/dL (70-100); SODIUM 145 mEq/L (134-144); TOTAL PROTEIN 7.8 g/dL (6.3-8.2)
[2017-05-13 01:25] VITALS: BP 109/56; PULSE 50; RESP 16; TEMP 97.9; O2SAT 96
== END 2017-05-13 01:37 | disposition home or self-care (01) ==
DX: R63.8 Other symptoms and signs concerning food and fluid intake (principal); E86.9 Volume depletion, unspecified; J45.909 Unspecified asthma, uncomplicated; Z87.891 Personal history of nicotine dependence
CPT/HCPCS: 96374; J2405

== ENCOUNTER 2017-07-07 18:12 | Emergency (ER) | payer MEDICAID ==
[2017-07-07 18:25] VITALS: RESP 18; TEMP 98
[2017-07-07] MEDS ORDERED: ONDANSETRON DISINTEGRATING 4 MG TAB PO ONE (18:34)
--- NOTE | 2017-07-07 19:06 | EDPHY ---
H & P Time Seen by Provider: 07/07/17 18:30 HPI/ROS: HPI Nausea, vomiting, diarrhea after smoking marijuana. 31-year-old male by private vehicle. This patient reports that he had surgery for a deviated septum 3 weeks ago. He reports that because of this he has been breathing through his mouth and this has made it difficult for him to sleep. He reports that last night he smokes some marijuana to help him sleep. He reports that he used to smoke marijuana frequently but stopped and has not smoked marijuana for a while. He reports that since last night he has had nausea with a couple of episodes of nonbilious, nonbloody vomiting and watery diarrhea. He presents to the emergency department with this complaint. He denies any significant abdominal pain. No fever. He states that he is actually feeling better now. ROS: Constitutional: No fever, no chills. No weakness. Eyes: No discharge. No changes in vision. ENT: No sore throat. No nasal congestion or rhinorrhea. Respiratory: No cough. No shortness of breath. Cardiac: No chest pain, no palpitations. Gastrointestinal: As above. Genitourinary: No hematuria. No dysuria or increased frequency with urination. Musculoskeletal: No back pain. No neck pain. No myalgias or arthralgias. Skin: No rashes. Neurological: No headache. No focal weakness or altered sensation. Past medical history: Anxiety, Crohn's, depression, asthma, surgery for deviated nasal septum, kidney stones, bladder expanding procedure, tonsillectomy. Social history: Does not smoke cigarettes. No alcohol. Here by himself. Physical Exam: General Appearance: Alert, mildly anxious but in no distress. He appears comfortable. This patient is responding to questions appropriately and in full sentences. This patient appears well-hydrated and well-nourished. Eyes: Pupils equal and round no pallor or injection. No lid edema, erythema or injection. Respiratory: There are no retractions, lungs are clear to auscultation with good air movement bilaterally. Cardiovascular: Regular rate and rhythm. No murmur. Gastrointestinal: Abdomen is soft and nontender on deep palpation throughout, no masses, bowel sounds normal. No focal tenderness at McBurney's point. No Nettles sign. Neurological: Motor sensory function is grossly intact. Cranial nerves are normal. Gait is normal. Skin: Warm and dry, no rashes. Musculoskeletal: Neck is supple and nontender. Extremities are symmetrical. All joints range without pain or impingement. Psychiatric: No agitation. No depression. Database: EKG: Imaging: Procedures: Emergency department course: Vital signs reviewed and are normal. He looks well hydrated. I feel he does not require IV fluids at this time. He was given 4 mg of ODT Zofran for nausea. He has a benign abdomen. He feels comfortable going home. I discussed oral hydration with him. I recommended he not smoke marijuana. I will give him a take-home pack of Ativan as well as some Zofran to go home with to help him sleep and to treat his nausea. He is in agreement with this plan. He will follow up with his primary care physician tomorrow for re-evaluation. Return to emergency department precautions discussed. All of his questions were answered. He was discharged in good condition. Differential Diagnosis: The differential diagnosis on this patient includes but is not limited to food borne illness, viral gastroenteritis, cannabis hyperemesis syndrome. Appendicitis, bowel obstruction, pancreatitis, cholecystitis, other surgical etiology unlikely. This represents a partial list of diagnoses considered. These considerations are based on history, physical exam, past history, reassessment and diagnostic testing. Smoking Status: Former smoker Constitutional: Initial Vital Signs Temperature (C) 36.6 C 07/07/17 18:23 Heart Rate 74 07/07/17 18:23 Respiratory Rate 18 07/07/17 18:23 Blood Pressure 130/90 H 07/07/17 18:23 O2 Sat (%) 93 07/07/17 18:23 O2 Delivery Mode Room Air Allergies/Adverse Reactions: No Known Allergies Allergy (Verified 05/13/17 00:09) Home Medications: Medication Instructions Recorded fluvoxaMINE MALEATE [Luvox] 200 mg PO DAILY 03/23/11 Humira 12/18/15 azaTHIOprine 04/18/17 Ondansetron Odt [Zofran Odt 4 mg 4 mg PO Q4 PRN #10 tab 05/13/17 (*)] Ondansetron Odt [Zofran Odt 4 mg 4 mg PO Q4PRN PRN #10 tab 07/07/17 (*)] Medical Decision Making - Data Points Medications Given: Discontinued Medications Ondansetron HCl (Zofran Odt) 4 mg PO EDNOW ONE Stop: 07/07/17 18:35 Last Admin: 07/07/17 18:40 Dose: 4 mg Departure - Departure Disposition: Home, Routine, Self-Care Clinical Impression: Vomiting and diarrhea, Insomnia Condition: Good Instructions: Gastroenteritis (ED) Additional Instructions: Read and follow provided instructions. Follow-up with your primary care physician tomorrow as discussed for re- evaluation. Take medication as prescribed for nausea. Ativan 1 mg tablets: 1 orally prior to bed. Do not drive while taking this medication. Keep well hydrated. A good fluid to drink is Gatorade mixed with water in a 1-1 dilution over ice. Return to the emergency department for worsening symptoms, worsening abdominal pain, vomiting and inability to keep fluids down despite medications or other serious concerns. Referrals: NONE *PRIMARY CARE P,. [Primary Care Provider] - As per Instructions Prescriptions: Ondansetron Odt [Zofran Odt 4 mg (*)] 4 mg PO Q4PRN PRN #10 tab PRN Reason: For Nausea & Vomiting
[2017-07-07] MEDS ORDERED: LORAZEPAM 1 MG PREPACK#4 BTL TAKEHOME ONE (19:07)
[2017-07-07 19:20] VITALS: BP 126/62; PULSE 78; O2SAT 97
== END 2017-07-07 19:18 | disposition home or self-care (01) ==
LOC: CED 18:12
DX: R11.10 Vomiting, unspecified (principal); R19.7 Diarrhea, unspecified; G47.00 Insomnia, unspecified; J45.909 Unspecified asthma, uncomplicated; Z87.891 Personal history of nicotine dependence

== ENCOUNTER 2017-09-10 19:59 | Emergency (ER) | payer MEDICAID ==
[2017-09-10] MEDS ORDERED: NS 1,000 ML IV ONE (20:53)
--- NOTE | 2017-09-10 20:56 | EDPHY ---
H & P Stated Complaint: HEADACHE X5HRS, TIRED, ONE VOMIT Time Seen by Provider: 09/10/17 20:24 HPI/ROS: CHIEF COMPLAINT: Subjective sensation of dehydration, requesting IV hydration HISTORY OF PRESENT ILLNESS: 31-year-old male history of Crohn's disease, states that he has been vigilant with his diet however this afternoon ate a hamburger and [place] fries, took a nap and awoke with dry mouth, nausea. No abdominal pain. Feels he would benefit from IV hydration. He is not requesting analgesia. Denies fever chills. Denies abdominal pain. Denies complaints. REVIEW OF SYSTEMS: A ten point review of systems was performed and is negative with the exception of the items mentioned in the HPI PAST MEDICAL & SURGICAL HISTORY: Crohn's disease. SOCIAL HISTORY:intermittent marijuana smoking PHYSICAL EXAM (Prior to examination, patient consented to physical exam, hands were washed and my usual and customary physical exam procedures followed) 1) GENERAL: Well-developed, well-nourished, alert and oriented. Appears to be in no acute distress. 2) HEAD: Normocephalic, atraumatic 3) HEENT: Pupils equal, round, reactive to light bilaterally. Sclera anicteric. Nasopharynx, oropharynx, clear, no lesions. Moist mucous membranes 4) NECK: Full range of motion, no meningeal signs. 5) LUNGS: Clear auscultation bilaterally, no wheezes, no rhonchi, no retractions. 6) HEART: Regular rate and rhythm, no murmur, no heave, no gallop. 7) ABDOMEN: No guarding, no rebound, no focal tenderness, negative McBurney's, negative Nettles's, negative Rovsing's, negative peritoneal sign, I am unable to elicit any abdominal pain on exam 8) MUSCULOSKELETAL: Moving all extremities, no focal areas of tenderness, no obvious trauma. No peripheral edema or discoloration. 9) BACK: No CVA tenderness, no midline vertebral tenderness, no fluctuance, no step-off, no obvious trauma, no visual or palpable abnormality. 10) SKIN: No rash, no petechiae. 11) Psychiatric: Patient is oriented X 3, there is no agitation. DIFFERENTIAL DIAGNOSIS: My differential diagnosis includes, but is not limited to, acute appendicitis, acute cholecystitis, bowel obstruction, acute pancreatitis, The patient understands that this diagnosis is provisional and can never be 100% accurate. This is a partial list of diagnoses considered. These considerations are based on history, physical exam, past history and reassessment. - Personal History Current Tetanus/Diphtheria Vaccine: Yes Tetanus Vaccine Date: <10 years - Medical/Surgical History Hx Asthma: Yes Hx Chronic Respiratory Disease: No Hx Diabetes: No Hx Cardiac Disease: No Hx Renal Disease: No Hx Cirrhosis: No Hx Alcoholism: No Hx HIV/AIDS: No Hx Splenectomy or Spleen Trauma: No Other PMH: anxiety, crohns, depression, athma. kidney stone with procedure, tonsillectomy, bladder expanding surgery 12/2016 - Social History Smoking Status: Former smoker Constitutional: Initial Vital Signs Temperature (C) 36.4 C 09/10/17 20:05 Heart Rate 56 L 09/10/17 20:05 Respiratory Rate 18 09/10/17 20:05 Blood Pressure 130/83 H 09/10/17 20:05 O2 Sat (%) 96 09/10/17 20:05 O2 Delivery Mode Room Air Allergies/Adverse Reactions: No Known Allergies Allergy (Verified 09/10/17 20:04) Home Medications: Medication Instructions Recorded fluvoxaMINE MALEATE [Luvox] 200 mg PO DAILY 03/23/11 Humira 12/18/15 azaTHIOprine 04/18/17 Medical Decision Making ED Course/Re-evaluation: 8:30 p.m.: This patient appears well, has a nontender abdomen with no subjective or objective abdominal pain. No nausea or vomiting. He thinks he will feel better if he were given IV hydration which has been ordered. At this time I do not think that imaging studies are definitively indicated. Will re- evaluate patient. 10:01 p.m.: Re-evaluation. He is feeling improvement after IV hydration. Doubt acute surgical abdominal pathology. He would like to be discharged. He requests name of other mobile home park manager in [place] [facility] of the [facility]. He has been given the name of Dr. Mike Corona at [facility]. Usual and customary abdominal precautions and instructions provided. He feels comfortable being discharged - Data Points Laboratory Results: Laboratory Results 09/10/17 20:16 09/10/17 20:16 09/10/17 09/10/17 20:16 20:16 WBC 6.44 10^3/uL 10^3/uL (3.80-9.50) RBC 4.39 10^6/uL L 10^6/uL (4.40-6.38) Hgb 14.5 g/dL g/dL (13.7-17.5) Hct 41.1 % % (40.0-51.0) MCV 93.6 fL fL (81.5-99.8) MCH 33.0 pg pg (27.9-34.1) MCHC 35.3 g/dL g/dL (32.4-36.7) RDW 15.3 % H % (11.5-15.2) Plt Count 198 10^3/uL 10^3/uL (150-400) MPV 11.6 fL fL (8.7-11.7) Neut % (Auto) 70.8 % % (39.3-74.2) Lymph % (Auto) 20.3 % % (15.0-45.0) [place] % (Auto) 5.0 % % (4.5-13.0) Eos % (Auto) 3.0 % % (0.6-7.6) Baso % (Auto) 0.6 % % (0.3-1.7) Nucleat RBC Rel Count 0.0 % % (0.0-0.2) Absolute Neuts (auto) 4.56 10^3/uL 10^3/uL (1.70-6.50) Absolute Lymphs (auto) 1.31 10^3/uL 10^3/uL (1.00-3.00) Absolute Monos (auto) 0.32 10^3/uL 10^3/uL (0.30-0.80) Absolute Eos (auto) 0.19 10^3/uL 10^3/uL (0.03-0.40) Absolute Basos (auto) 0.04 10^3/uL 10^3/uL (0.02-0.10) Absolute Nucleated RBC 0.00 10^3/uL 10^3/uL (0-0.01) Immature Gran % 0.3 % % (0.0-1.1) Immature Gran # 0.02 10^3/uL 10^3/uL (0.00-0.10) Sodium 145 mEq/L mEq/L (135-145) Potassium 4.3 mEq/L mEq/L (3.5-5.2) Chloride 106 mEq/L mEq/L (97-110) Carbon Dioxide 27 mEq/l mEq/l (22-31) Anion Gap 12 mEq/L mEq/L (8-16) BUN 19 mg/dL mg/dL (7-23) Creatinine 1.1 mg/dL mg/dL (0.7-1.3) Estimated GFR > 60 Glucose 96 mg/dL mg/dL (70-100) Calcium 9.8 mg/dL mg/dL (8.5-10.4) Total Bilirubin 1.6 mg/dL H mg/dL (0.1-1.4) Conjugated Bilirubin 0.3 mg/dL mg/dL (0.0-0.5) Unconjugated Bilirubin 1.3 mg/dL H mg/dL (0.0-1.1) AST 21 IU/L IU/L (17-59) ALT 26 IU/L IU/L (21-72) Alkaline Phosphatase 48 IU/L IU/L (38-126) Total Protein 8.0 g/dL g/dL (6.3-8.2) Albumin 4.8 g/dL g/dL (3.5-5.0) Lipase 105 IU/L IU/L (23-300) Medications Given: Discontinued Medications Sodium Chloride (Ns) 1,000 mls @ 0 mls/hr IV ONCE ONE PRN Reason: Wide Open Stop: 09/10/17 20:54 Last Admin: 09/10/17 21:19 Dose: 1,000 mls Departure - Departure Disposition: Home, Routine, Self-Care Clinical Impression: Crohns disease Qualifiers: Gastrointestinal tract location: unspecified location Digestive disease complication type: without complication Qualified Code(s): K50.90 - Crohn's disease, unspecified, without complications Condition: Good Instructions: Crohn Disease (ED) Additional Instructions: Seek immediate medical attention if you develop new or worsening symptoms, if you develop fevers, chills, inability to tolerate oral intake or any other symptoms that concerns you. Referrals: Kathleen Willson PA [Primary Care Provider] - 1-2 days without fail Mike Corona MD [[facility] [place] Primary Care Provider] - 2-3 days without fail (Dr. Mike Corona is a mobile home park manager at [facility])
[2017-09-10 21:21] LABS: PLATELET COUNT 198 10^3/uL (150-400)
[2017-09-10 22:27] VITALS: BP 128/80
== END 2017-09-10 22:27 | disposition home or self-care (01) ==
DX: K50.90 Crohn's disease, unspecified, without complications (principal); J45.909 Unspecified asthma, uncomplicated; Z87.891 Personal history of nicotine dependence

== ENCOUNTER 2017-09-16 14:13 | Emergency (ER) | payer MEDICAID ==
[2017-09-16] MEDS ORDERED: NS 1,000 ML IV ONE ×2 (14:29)
--- NOTE | 2017-09-16 14:33 | EDPHY ---
H & P Smoking Status: Former smoker Time Seen by Provider: 09/16/17 14:29 HPI/ROS: CHIEF COMPLAINT: Nausea and vomiting HISTORY OF PRESENT ILLNESS: Patient does have a history of Crohn's disease but has never previously had abdominal surgery. Had a soda last night, thinks this might be partially responsible. His symptoms started when he woke up, had an episode of diarrhea, mild headache, and nausea. He had appointment to have his car in the [employer] in [place] to have some work done on it. Went there and around 1100am after arriving at the dealership vomited and then again on the way home in the rental car vomited again, presents with nausea feeling dehydrated with typical with dehydration for him, associated headache. No abdominal pain or and only 1 episode of diarrhea but no bloody stools. No fever or chills, symptoms moderate to severe, feels dehydrated. REVIEW OF SYSTEMS: Eye: no change in vision ENT: no sore throat Cardiac: no chest pain or syncope Pulmonary: No respiratory symptoms Abdomen: HPI Musculoskeletal: no back pain Skin: no rash Neuro: HPI Constitutional: no fever : Patient self caths, no change. A comprehensive 10 point review of systems is otherwise negative aside from elements mentioned in the history of present illness. PAST MEDICAL HISTORY: Includes bladder problem (expansion procedure), botox procedure x2, needs to self catheterize; asthma; renal colic; anxiety and depression; Crohn's disease. Nasal surgery for deviated septum, Clostridium difficile. Previous ED visits dated 09/10 and 07/07/2017 reviewed personally. Social history: Nonsmoker General Appearance: Alert and conversant, cooperative. Eyes: No scleral icterus. ENT, Mouth: Dry mucous membranes Respiratory: Normal respiratory effort, breath sounds equal, lungs are clear to auscultation. Cardiovascular: Regular rate and rhythm. Gastrointestinal: Abdomen is soft and non tender. No McBurney's point tenderness. Neurological: Alert, normal speech, ambulatory. Skin: Warm and dry, no rashes. Musculoskeletal: No peripheral edema. Psychiatric: Not agitated. Emergency Department course/MDM: Patient declined antiemetics, says that hydration usually controls his symptoms. Declined medication for his headache. He did take some Tylenol today. Normal saline 2 L IV, CBC and chemistry. Signed out to Torey at 1500, plan to recheck after hydration; labs pending. ( Grzegorz Cook) Constitutional: Initial Vital Signs Temperature (C) 36.4 C 09/16/17 14:20 Heart Rate 54 L 09/16/17 14:20 Respiratory Rate 16 09/16/17 14:20 Blood Pressure 141/85 H 09/16/17 14:20 O2 Sat (%) 96 09/16/17 14:20 O2 Delivery Mode Room Air Allergies/Adverse Reactions: No Known Allergies Allergy (Verified 09/16/17 14:20) Home Medications: Medication Instructions Recorded fluvoxaMINE MALEATE [Luvox] 200 mg PO DAILY 03/23/11 Humira 12/18/15 azaTHIOprine 04/18/17 Medical Decision Making ED Course/Re-evaluation: IV normal saline bolus The patient improved without further intervention. He had no further nausea vomiting or other complaints. Labs: Normal CBC, normal basic metabolic panel I counseled the patient regarding his normal labs. He was appreciative of the hydration stating that he feels improved and was reassured tonight had no significant lab abnormalities. The patient will follow up with her primary care physician or Gastroenterology understands the need to return emergency department should he developed worsening symptoms despite the treatment plan. ( James Lema) Differential Diagnosis: Differential considered including but not limited to gastroenteritis, food poisoning, bowel obstruction, appendicitis, Crohn's flare (Grzegorz Cook) - Data Points Laboratory Results: Laboratory Results 09/16/17 14:38 09/16/17 14:38 Medications Given: Discontinued Medications Sodium Chloride (Ns) 1,000 mls @ 0 mls/hr IV EDNOW ONE; Wide Open PRN Reason: Protocol Stop: 09/16/17 14:30 Last Admin: 09/16/17 14:44 Dose: 1,000 mls Sodium Chloride (Ns) 1,000 mls @ 0 mls/hr IV EDNOW ONE; Wide Open PRN Reason: Protocol Stop: 09/16/17 14:30 Last Admin: 09/16/17 15:06 Dose: 1,000 mls Departure - Departure Disposition: Home, Routine, Self-Care Clinical Impression: Dehydration Nausea & vomiting Qualifiers: Vomiting type: unspecified Vomiting Intractability: non-intractable Qualified Code(s): R11.2 - Nausea with vomiting, unspecified Condition: Good Instructions: Dehydration (ED), Acute Nausea and Vomiting (ED) Referrals: ADDIS DOE [Other] - As per Instructions (Kathleen Nix your PCP)
[2017-09-16 14:45] LABS: PLATELET COUNT 235 10^3/uL (150-400)
[2017-09-16 16:02] VITALS: BP 116/62
== END 2017-09-16 16:07 | disposition home or self-care (01) ==
LOC: CED 14:13
DX: R11.2 Nausea with vomiting, unspecified (principal); E86.9 Volume depletion, unspecified; J45.909 Unspecified asthma, uncomplicated; Z87.891 Personal history of nicotine dependence
CPT/HCPCS: 80048-PO; 85025-PO

== ENCOUNTER 2018-01-12 09:47 | Emergency (ER) | payer MEDICAID ==
[2018-01-12 10:12] VITALS: BP 119/73
--- NOTE | 2018-01-12 10:37 | EDPHY ---
H & P Time Seen by Provider: 01/12/18 09:58 HPI/ROS: CHIEF COMPLAINT: Left axillary cyst HISTORY OF PRESENT ILLNESS: Patient states he woke up this morning and noticed a bump in his left armpit. He has had large abscess there in years past which required incision and drainage. He was treated for hyperhidrosis in 2018 in August and wonders if this may have caused the problem. He denies other abscesses. He had no fever or chills. Has no other skin lesions. He denies other systemic symptoms. REVIEW OF SYSTEMS: Negative except per HPI. General Appearance: Alert, no distress. Eyes: Pupils equal and round no icterus Respiratory: No respiratory distress Neurological: Awake, alert, no focal deficits. Skin: Warm and dry, no rashes. Small mobile cystic mass in the left axilla. Slight erythema to skin over this mass. No other lymphadenopathy appreciated. Musculoskeletal: Neck is supple nontender. Extremities are symmetrical, full range of motion, no edema. Psychiatric: Patient is oriented X 3, somewhat pressured speech. Medical/surgical history: Crohn's disease, depression, anxiety, kidney stones. Surgeries include urologic procedure for kidney stones, tonsillectomy, bladder surgery. Social history: Patient denies alcohol or tobacco, uses cannabis. Smoking Status: Current some day smoker Constitutional: Initial Vital Signs Temperature (C) 36.7 C 01/12/18 10:05 Heart Rate 65 01/12/18 10:05 Respiratory Rate 16 01/12/18 10:05 Blood Pressure 119/73 01/12/18 10:05 O2 Sat (%) 95 01/12/18 10:05 O2 Delivery Mode Room Air Allergies/Adverse Reactions: No Known Allergies Allergy (Verified 01/12/18 10:14) Home Medications: Medication Instructions Recorded fluvoxaMINE MALEATE [Luvox] 200 mg PO DAILY 03/23/11 Humira 12/18/15 Medical Decision Making Differential Diagnosis: Differential diagnosis includes but is not limited to abscess, cyst, lymphadenopathy, hidradenitis suppurativa. After evaluation small abscess suspected but likely too small to be amenable to incision and drainage. Recommended warm packs several times daily and return to the emergency department if mass doubles in size. Patient understands return precautions. Stable for discharge. Departure - Departure Disposition: Home, Routine, Self-Care Clinical Impression: Abscess Condition: Good Instructions: Abscess (ED) Additional Instructions: Apply warm packs to area as discussed 3-4 times daily. Return to the emergency department for likely incision and drainage if abscess doubles in size. Or return to the emergency department if other concerning symptoms developed. Referrals: Kathleen Willson PA [Primary Care Provider] - As per Instructions
== END 2018-01-12 10:57 | disposition home or self-care (01) ==
LOC: CED 09:47
DX: L02.412 Cutaneous abscess of left axilla (principal)

== ENCOUNTER 2018-01-22 22:40 | Emergency (ER) | payer MEDICAID ==
[2018-01-22 22:55] VITALS: BP 121/74
--- NOTE | 2018-01-22 23:15 | EDPHY ---
H & P Time Seen by Provider: 01/22/18 22:52 HPI/ROS: CHIEF COMPLAINT: Lump in the left axilla HISTORY OF PRESENT ILLNESS: This is a 32-year-old male who is been seen now for the 3rd time in the last 10 days for this process. Initially on the 1st visit it was little too early as there is nothing to I& D. On the 2nd visit some 5 days ago there was some small amount of pus with a I&D. He completed the antibiotics. However, he noted that now there is an area of raised tissue on the axilla that is irritating him and is wondering if the abscesses coming back. He is feels well otherwise. He has had no fevers or chills. There is no lymphangitis. He has noted no swollen glands. He is not irritated the area. He did try to express some pus but then success History of Crohn's disease now on Humira : REVIEW OF SYSTEMS: Constitutional: No fever, no chills. Musculoskeletal: No no pain going on the are Skin: No other rashes, or lesions Neurological: No headache. Smoking Status: Current some day smoker Physical Exam: General Appearance: Alert, no distress. Afebrile. Normal phonation. No respiratory distress. Skin: Warm and dry. In the left axilla there is an area of raised tissue with healing wound present. There seems to be a central area of globular formation that is small, 2 mm but then less raised above everything else as well. I am unable to express any fluid from this at this point in time Musculoskeletal: No joint swelling. Extremities: No edema. Homans sign negative. No cords. Psychiatric: Normal affect. Patient is oriented X 3. There is no agitation Constitutional: Initial Vital Signs Temperature (C) 36.8 C 01/22/18 22:50 Heart Rate 60 01/22/18 22:50 Respiratory Rate 16 01/22/18 22:50 Blood Pressure 121/74 H 01/22/18 22:50 O2 Sat (%) 96 01/22/18 22:50 O2 Delivery Mode Room Air Allergies/Adverse Reactions: No Known Allergies Allergy (Verified 01/17/18 15:22) Home Medications: Medication Instructions Recorded fluvoxaMINE MALEATE [Luvox] 200 mg PO DAILY 03/23/11 Humira 12/18/15 Cephalexin [Keflex (*)] 500 mg PO TID #21 cap 01/17/18 Medical Decision Making Procedures: Discussed the prospect of removing the tube piece of tissue verses a draining what little fluid is at the top. Perhaps this is a pustule. Chlorhexidine prep. Local infiltration with 1% xylocaine with epinephrine. Tolerated this well. The area was incised with a 11. Scalpel. In point of fact it seemed to be a raised area of fatty globules that was outside of the wound itself. Thus did in a triangular fashion this was excised and removed. No pus was evident. Differential Diagnosis: Diagnostic considerations include, but are not limited to, the following: Abscess recurrence, abscess formation, scar tissue, cellulitis Departure - Departure Disposition: Home, Routine, Self-Care Clinical Impression: Abscess re-check Condition: Good Instructions: Abscess (ED) Additional Instructions: Bandage the area to keep the blood from getting all over. twice daily for 3 days, rinse area under shower or lay in a shallow tube to soak the area - using mild soap so as to clean the area. Referrals: Leticia Dennis MD [Medical Doctor] - As per Instructions
== END 2018-01-22 23:30 | disposition home or self-care (01) ==
LOC: CED 22:40
PROC: 0H9CXZZ Drainage of Left Upper Arm Skin, External Approach (ICD-10-PCS; principal; 2018-01-22)
DX: L02.412 Cutaneous abscess of left axilla (principal); F17.200 Nicotine dependence, unspecified, uncomplicated

== ENCOUNTER 2018-05-13 13:47 | Emergency (ER) | payer MEDICAID, OTHER ==
--- NOTE | 2018-05-13 13:59 | EDPHY ---
H & P - Personal History Tetanus Vaccine Date: <10 years - Medical/Surgical History Hx Asthma: Yes Hx Chronic Respiratory Disease: No Hx Diabetes: No Hx Cardiac Disease: No Hx Renal Disease: No Hx Cirrhosis: No Hx Alcoholism: No Hx HIV/AIDS: No Hx Splenectomy or Spleen Trauma: No Other PMH: anxiety, crohns, depression, asthma. kidney stone with procedure, tonsillectomy, bladder expanding surgery 12/2016 - Social History Smoking Status: Current some day smoker Time Seen by Provider: 05/13/18 13:55 HPI/ROS: CHIEF COMPLAINT: Dehydrated, diarrhea, yellow urine. HISTORY OF PRESENT ILLNESS: 29 year old male with history of Crohn's presents with dehydration by his history. Patient reports the winter months his depression and anxiety cake and he starts to feel poorly, he has been noticing a dry throat, unsure if he has been drinking enough fluid, the and then developed watery diarrhea yesterday. Diarrhea is described as yellow and watery , minimal abdominal discomfort with this, no fever, no blood. No nausea or vomiting. He does have a history of Clostridium difficile but states that he does not have as much pain as he had with his C difficile diagnosis. No ill contacts. No suspect food. No travel outside the [place]. No body aches , chills, or cough. Reports some lightheadedness and orthostatic symptoms but no fainting. No abdominal surgeries. REVIEW OF SYSTEMS: A comprehensive 10 system review of systems was reviewed and is otherwise negative aside from elements mentioned in the history of present illness and medical decision making. PAST MEDICAL HISTORY: Crohn's disease. Anxiety, depression. Kidney stone, SOCIAL HISTORY: Patient sees Dr. Duarte for Gastroenterology, [facility]. No alcohol, nonsmoker, daily marijuana user. VITAL SIGNS reviewed by me. GENERAL: Well-developed, well-nourished, resting comfortably in no respiratory distress. HEENT: Dry lips, slightly dry mucous membranes.. LUNGS: Clear to auscultation bilaterally, no wheezes, rhonchi or rales. CARDIAC: Regular rate and rhythm, no rubs, murmurs or gallops. ABDOMEN: Soft, nontender, nondistended, bowel sounds normal. EXTREMITIES: No trauma. No edema. Range of motion is normal throughout. NEURO: Alert and oriented, grossly nonfocal. SKIN: Warm and dry, no rash. PSYCHIATRIC: Normal mentation, no agitation. (Clari Santana) Constitutional: Initial Vital Signs Temperature (C) 36.7 C 05/13/18 14:05 Heart Rate 67 05/13/18 14:05 Respiratory Rate 16 05/13/18 14:05 Blood Pressure 132/76 H 05/13/18 14:05 O2 Sat (%) 95 05/13/18 14:05 O2 Delivery Mode Room Air Allergies/Adverse Reactions: No Known Allergies Allergy (Verified 05/13/18 14:03) Home Medications: Medication Instructions Recorded fluvoxaMINE MALEATE [Luvox] 200 mg PO DAILY 03/23/11 Humira 12/18/15 LORazepam [Ativan (*)] 05/13/18 Medical Decision Making ED Course/Re-evaluation: IV established. Patient begun on 1 L of normal saline. Requested sample of stool if possible. Labs including CBC and chemistries as well as a urinalysis ordered. Patient's creatinine is slightly elevated at 1.5. Review of the patient's records demonstrate prior creatinine at 1.4 and 1.6, most recently the patient' s creatinine has been in the normal range. Patient has been unable to provide a stool sample. Patient received a 2nd L of normal saline given the elevated creatinine. (Clari Santana) I assumed care of patient pending rehydration. Patient received 2 L of normal saline and was able to take oral fluids without any difficulty. He wanted to go home. Urine dip was notable for positive ketones and positive blood. I discussed this result with the patient. The patient has had kidney stones in the past as well as other bladder difficulties and frequently self cath and is followed by urologist and so he has multiple reasons to have positive blood dip stick and I see no further reason to pursue this at this time. We did discuss importance of having his creatinine rechecked early next week with his primary care physician. Patient was discharged home in improved condition. (Laurel Wagner ) Differential Diagnosis: Differential diagnosis for the patient's diarrhea was considered including but not limited to gastroenteritis, colitis, diverticulitis, bacterial dysentery, viral diarrhea, medication effect, and malabsorption syndrome. (Clari Santana) - Data Points Laboratory Results: 05/13/18 14:21 POC Sodium 144 mEq/L mEq/L (135-145) POC Potassium 3.5 mEq/L mEq/L (3.3-5.0) POC Chloride 103.0 mEq/L mEq/L (97-110) POC Total CO2 23 mEq/L mEq/L (22-31) POC BUN 18 mg/dL mg/dL (7-23) POC Creatinine 1.5 mg/dL H mg/dL (0.7-1.3) POC Glucose 95 mg/dL mg/dL (70-100) POC Calcium 9.4 mg/dL mg/dL (8.5-10.4) Medications Given: Discontinued Medications Sodium Chloride (Ns) 1,000 mls @ 0 mls/hr IV ONCE ONE; Wide Open PRN Reason: Protocol Stop: 05/13/18 14:03 Last Admin: 05/13/18 14:15 Dose: 1,000 mls Sodium Chloride (Ns) 1,000 mls @ 0 mls/hr IV ONCE ONE PRN Reason: Wide Open Stop: 05/13/18 15:09 Last Admin: 05/13/18 15:20 Dose: 1,000 mls Point of Care Test Results: CBC CBC Collection Date 05/13/18 CBC Collection Time 14:10 WBC 8.1 RBC 5.33 HGB 16.7 HCT 46.8 PLT 154 Neut # 6.0 Neut 74.1 LYMPH # 1.4 LYMPH 17.1 Other WBC # 0.7 Other WBC 8.8 MCV 87.8 Chemistry 05/13/18 14:21 POC Sodium 144 mEq/L mEq/L (135-145) POC Potassium 3.5 mEq/L mEq/L (3.3-5.0) POC Chloride 103.0 mEq/L mEq/L (97-110) POC Total CO2 23 mEq/L mEq/L (22-31) POC BUN 18 mg/dL mg/dL (7-23) POC Creatinine 1.5 mg/dL H mg/dL (0.7-1.3) POC Glucose 95 mg/dL mg/dL (70-100) POC Calcium 9.4 mg/dL mg/dL (8.5-10.4) Departure - Departure Disposition: Home, Routine, Self-Care Clinical Impression: Dehydration Diarrhea Qualifiers: Diarrhea type: unspecified type Qualified Code(s): R19.7 - Diarrhea, unspecified Condition: Good Instructions: Acute Diarrhea (ED) Additional Instructions: Please drink plenty of fluid in small frequent sips to avoid dehydration. Please bring a stool sample to the [facility] as soon as possible if the diarrhea is ongoing. Please follow up with your hvac instructor on Tuesday if you continuing to have ongoing diarrhea, especially if he developed bloody diarrhea. Please make sure to have your creatinine (kidney function) rechecked by her primary care physician or hvac instructor on Tuesday or early next week to make sure and has returned to normal. If you develop a fever, vomiting, significant blood in the stools, lightheadedness and fainting, or other concerns regarding significant dehydration you may return to the emergency department any time.
[2018-05-13] MEDS ORDERED: NS 1,000 ML IV ONE ×2 (14:02→15:08)
[2018-05-13 16:24] VITALS: BP 129/88
== END 2018-05-13 16:40 | disposition home or self-care (01) ==
LOC: CED 13:47
DX: E86.0 Dehydration (principal); R19.7 Diarrhea, unspecified
CPT/HCPCS: 80048-PO